=== PATIENT | female | born 1945 | race Asian ===

== ENCOUNTER 2017-11-30 19:48 | Emergency (ER) | payer MEDICARE, OTHER ==
[~2017-11-30] VITALS: Ht 157.5 cm; Wt 59.1 kg
[~2017-11-30 19:48] MED LIST: DOCU240C25 PO; ERGO2000 PO; FOLI0.8T2 PO; FOLI1 PO; HYDR-3965 PO; INSLAN SQ; LISI-662 PO; LORA10TA7 PO; NIFE30TA5 PO; PIOG15TA6 PO; PRAV40TA4 PO; SEVEC800 PO
[2017-11-30 20:09] LABS: GLUCOSE,POINT OF CARE 194 MG/DL (70-110)
[2017-11-30] MEDS ORDERED: LISI-661 PO (20:17)
[2017-11-30] MEDS ORDERED: MIRT15 PO (20:17)
[2017-11-30] MEDS ORDERED: PHOSLOC PO (20:17)
[2017-11-30] MEDS ORDERED: OMEP20 PO (20:17)
[2017-11-30 21:40] VITALS: BP 115/71
== END 2017-11-30 22:04 | disposition home or self-care (01) ==
LOC: EMS 19:49
DX: S00.81XA Abrasion of other part of head, initial encounter (principal); I10 Essential (primary) hypertension; E11.9 Type 2 diabetes mellitus without complications; E78.00 Pure hypercholesterolemia, unspecified; K21.9 Gastro-esophageal reflux disease without esophagitis; X58.XXXA Exposure to other specified factors, initial encounter; Y93.89 Activity, other specified; Y92.89 Other specified places as the place of occurrence of the external cause; Y99.8 Other external cause status
CPT/HCPCS: 99283

== ENCOUNTER → 2019-02-20 | Outpatient (CLI) | payer MEDICARE, OTHER ==
[~2019-02-20] MED LIST changes: -DOCU240C25 PO; -FOLI1 PO; -HYDR-3965 PO; -INSLAN SQ; +LISI-661 PO; -LISI-662 PO; -LORA10TA7 PO; +MIRT15 PO; +OMEP20 PO; +PHOSLOC PO; -PIOG15TA6 PO; -SEVEC800 PO
== END | disposition home or self-care (01) ==
LOC: RADPV 10:05
PROVIDERS: ATTEND Internal Medicine
DX: R76.11 Nonspecific reaction to tuberculin skin test without active tuberculosis (principal); I70.0 Atherosclerosis of aorta